=== PATIENT | male | born 1990 | race African-American/Black ===

== ENCOUNTER 2018-04-01 15:35 | Emergency (ER) | payer SELFPAY ==
[2018-04-01 15:36] VITALS: BP 134/67; PULSE 62; RESP 16; TEMP 36.4; O2SAT 97; BMI 26.6
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
[2018-04-01] MEDS: Naproxen 250 MG Tablet 500 MG PO (16:09)
== END 2018-04-01 16:16 | disposition home or self-care (01) ==
LOC: ED 16:02
PROVIDERS: Emergency Provider Emergency Medicine
DX: M94.0 Chondrocostal junction syndrome [Tietze] (principal)
CPT/HCPCS: 99283

== ENCOUNTER 2019-01-13 11:39 | Emergency (ER) | payer SELFPAY ==
[2019-01-13 11:40] VITALS: BP 142/77; PULSE 81; RESP 16; TEMP 36.3; O2SAT 95; BMI 25.0
--- NOTE | 2019-01-13 11:56 | RAD_ITS ---
STUDY: X-RAY - RIGHT FOOT CLINICAL: Male, 29 years old. Pain and swelling. TECHNIQUE: 3 view(s) of the foot. COMPARISON: None. FINDINGS: Normal talus, calcaneus, and tarsal bones. Normal visualized subtalar, talonavicular, calcaneocuboid, tarsal and tarsometatarsal articulations. Normal metatarsi. Normal metatarsophalangeal joint of the great toe. Normal tibial and fibular sesamoid bones. Normal interphalangeal joint of the great toe. Normal phalanges of the great toe. Normal second through fifth metatarsophalangeal joints. Normal interphalangeal joints and phalanges of the lesser toes. The soft tissue structures are unremarkable. RAD/Foot min 3 Views IMPRESSION: Normal x-ray examination of the foot. Electronically Signed: Willian Moeller MD at 12:18 EST , Service support ,
[2019-01-13] MEDS: Ibuprofen 600 MG Tablet PO (12:00)
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
--- NOTE | 2019-01-13 12:51 | ED.DEP ---
ED Disposition - Plan for ED Patient: Instructions: R.I.C.E. Prescriptions: Ibuprofen [Motrin] 800 mg PO TID PRN PRN #20 tab PRN Reason: Pain Referrals: Paramjit Black MD [Primary Care Provider] -
== END 2019-01-13 13:26 | disposition home or self-care (01) ==
PROVIDERS: Emergency Provider Emergency Medicine; Family Provider Family Medicine; PCP Family Medicine
DX: M79.671 Pain in right foot (principal)
CPT/HCPCS: 73630; 99283; J7030; A4216

== ENCOUNTER 2022-07-27 08:35 | Emergency (ER) | payer BC, SELFPAY ==
[2022-07-27 08:36] VITALS: BP 131/84; PULSE 76; RESP 14; TEMP 36.8; BMI 27.0
[2022-07-27] MEDS: Lidocaine 1% (20 ml mdv) 20 ML Vial 10 ML INFILT (08:49)
--- NOTE | 2022-07-27 08:50 | EDS_ITS ---
HPI History of Present Illness HPI Narrative: Left lateral thumb laceration last night around midnight. Chief Complaint: Laceration Informant: patient Occured/Mechanism Mechanism/Context: Yes injury Onset/Context/Timing Onset: Today Context: Sudden Onset Timing: Continuous Quality of Pain: Sharp Current Severity: Mild Maximum Severity: Mild Associated Symptoms Associated Symptoms: Negative for Parasthesia, Weakness or Loss of Funtion Narrative Narrative: 32-year-old male [id number]. Last night was cooking around midnight when he accidentally cut his left lateral left thumb. This occurred almost 9 hours ago now. He was not available to come in last night so he came in this morning. He believes his last tetanus shot was 3 years ago almost 7 years ago. Denies any other injuries. Tetanus Immunization: <5 years Prior similar symptoms: No Recent Illness/Hospitalization: No PFSH PFSH Medical History no medical history no medical history Home Medications cetirizine 10 mg capsule (Zyrtec) 10 mg PO DAILY 04/07/17 [History Last Taken 04/07/17] naproxen 500 mg tablet 500 mg PO BID #14 tabs 04/01/18 [Rx Last Taken Unknown] ibuprofen 800 mg tablet 800 mg PO TID PRN PRN Pain #20 tabs 01/13/19 [Rx Last Taken Unknown] Allergy/AdvReac Type Severity Reaction Status Date / Time No Known Allergies Allergy Verified 07/27/22 08:36 Social History Smoking Status: Never smoker ROS ROS ED ROS Narrative Denies recent illness. Review of Systems ROS Unobtainable: Denies due to encephalopathy Constitutional Constitutional ED: Denies chills or fever(s) Eyes Eyes: Denies blurry vision ENT ENT ED: Denies ear pain Cardiovascular Cardiovascular: Denies chest pain Respiratory/Chest Respiratory/Chest: Denies cough or dyspnea Gastrointestinal Gastrointestinal: Denies abdominal pain Genitourinary Genitourinary ED: Denies dysuria or hematuria Musculoskeletal Musculoskeletal: Denies back pain Integumentary Denies abscess Neurologic Neurologic: Denies headache(s) Psychiatric Psychiatric: Denies anxiety Endocrine Endocrinology: Denies cold intolerance Hematologic/Lymphatic Hematologic/Lymphatic: Denies easy bleeding Allergic/Immunologic Allergic/Immunologic ED: Denies mouth swelling or tongue swelling EXAM Physical Exam Narrative Exam Narrative: 32-year-old male no acute distress. Vital signs stable afebrile. H EENT exam normal. Lungs are clear. Heart regular rhythm. Abdomen soft nontender. Moving all 4 extremities. Neurovascularly intact. His left thumb lateral radial side has a flap laceration. Oozing blood. He has flexion extension. It does not appear to be involvement of the bone or joint. Normal touch sensation to tip of his thumb. No infection. Const Vital Signs: 07/27/22 08:36 Temperature 98.2 F Temperature Source Temporal Pulse Rate 76 Respiratory Rate 14 Blood Pressure 131/84 H Blood Pressure Mean 99 Positive well developed; Negative for obese, cachectic, contractures or unkempt General Appearance ED: well developed and NAD; Negative for unkempt, cachectic, contractures, cyanotic or diaphoretic Nutritional Appearance: Negative for cachectic or obese HEENT Reports moist mucous membranes normocephalic and atraumatic; Negative for trauma or tenderness Eyes PERRL and EOMs intact bilaterally General Eye ED: Negative for other Neck full ROM and supple General: Negative for tenderness Lymph Lymphatic: Negative for other Chest Wall inspection of chest normal and palpation of chest normal Resp normal respiratory effort and clear to auscultation bilaterally Effort and Inspection: Negative for pain with movement Auscultation: Negative for rales, rhonchi or wheezes Cardio regular rate, regular rhythm, S1 normal heart sound, S2 normal heart sound and no murmurs Rate: Negative for bradycardia or tachycardic Rhythm: Negative for abnormal rhythm GI non-tender, non-distended and no masses Inspection: Negative for abdominal distention Auscultation: normoactive bowel sounds Palpation: soft; Negative for tender or guarding Bladder / Kidney Exam: No other Back/Spine no CVA tenderness General Back: Negative for CVA tenderness Cervical Spine: Negative for cervical spine tenderness Thoracic Spine / Upper Back: Negative for thoracic spinal tenderness Extremity normal to inspection and full ROM Extremity Narrative: Except left thumb lateral radial side flap laceration. No infection. Needs r epaired. Neuro oriented x3, CN's II-XII intact bilaterally, moves all extremities, no focal motor deficits and No no sensory deficits noted Sensorium / Orientation: alert, oriented to person, oriented to place and oriented to time; Negative for orientation impaired, lethargic or stuporous Motor Exam: strength 5/5 throughout Psych mental status grossly normal Appearance: Negative for unkempt Attitude: No agitated Mood & Affect: Negative for depressed, anxious or tearful Skin General Skin Exam: Negative for petechiae Lesions: no lesions Rashes: no rashes Trauma: laceration; Negative for no lacerations or abrasions MDM MDM MDM Narrative Medical decision making narrative: Left lateral thumb laceration and need suture repaired. They washed off. Cleaned with Shur-Clens washed with saline. Explored. Local anesthetized with lidocaine and closed. He will be instructed on wound care and suture removal. Procedures Lacerations Left thumb laceration repair:: Length: 2.36 in Depth: Sub Q Shape: Flap Prep: Sterile Conditions and Shure-Clens Laceration repair: Irrigated, Lidocaine, Local and Skin sutures Number of Sutures/[place]: 8 Suture Information: Ethilon, Simple and 5-0 Comment: Left lateral thumb laceration radial side. V-shaped flap. Local anesthetized with lidocaine. Cleaned with Shur-Clens. Irrigated with saline. Washed explored. Closed using 8 simple interrupted 5-0 Ethilon sutures. Proper hemostasis wound closure is obtained. Patient was instructed on wound care and suture removal in 10 days. Return if any signs of infection. Discharge Plan Triage Chief Complaint: Laceration ED Provider: Ja Gray Dx/Rx/DC Orders Clinical Impression: Laceration of left thumb Instructions: ED Laceration, Hand: All Closures Prescriptions: No Action cetirizine [Zyrtec] 10 MG capsule 10 mg PO DAILY naproxen 500 MG tablet 500 mg PO BID Qty: 14 0RF ibuprofen 800 MG tablet 800 mg PO TID PRN PRN (Reason: Pain) Qty: 20 0RF Primary Care Provider: Chriss Estevez Referrals: Paramjit Black MD [Med Staff - [employer]] - 10 Day for suture removal Activity Restrictions/Additional Instructions: Keep last repair dry and clean. Gently wash it daily with soap and water. Dry thoroughly. Apply antibiotic ointment once to twice daily. Suture removal in 10 days from now. You can remove them yourself if you feel comfortable. Cut away from the knot side and pull out the knot side. Watch for any signs of infection such as pus, redness, fever or streaks if seen return. Disposition Disposition: Home, Self Care
== END 2022-07-27 09:44 | disposition home or self-care (01) ==
PROVIDERS: Emergency Provider Emergency Medicine; PCP Family Medicine; Visit Provider Emergency Medicine
DX: S61.012A Laceration without foreign body of left thumb without damage to nail, initial encounter (principal); W26.8XXA Contact with other sharp object(s), not elsewhere classified, initial encounter; Y93.G3 Activity, cooking and baking
CPT/HCPCS: 12002; 99282

== ENCOUNTER 2023-07-09 08:57 | Emergency (ER) | payer MEDICAID, SELFPAY ==
[2023-07-09] VITALS (7 sets, daily range): BP systolic 116–132; BP diastolic 72–94; PULSE 70–80; RESP 16–20; TEMP 36.6–37.2; O2SAT 94–100; BMI 28.1
[2023-07-09 09:59] LABS: Absolute Lymphocyte Count 1.54 X10^3/uL (0.83-4.51); Absolute Neutrophil Count 4.9 X10^3/uL (2.0-7.7); Basophil# 0.05 X10^3/uL; Basophil% 0.7 % (0-1); Eosinophil# 0.05 X10^3/uL; Eosinophils% 0.7 % (0-5); Hematocrit 47.5 % (40-54); Hemoglobin 15.1 g/dL (13.0-16.5); Lymphocyte # 1.54 X10^3/ul (0.83-4.51); Lymphocyte % 20.4 % (19-41); Mean Corp Hgb Conc 31.8 g/dL (32-36); Mean Corpuscular Hgb 29.3 pg (27.0-32.0); Mean Corpuscular Volume 92.2 fL (80-94); Mean Platelet Vol. 9.2 fl (6.2-12.0); Monocyte# 0.99 X10^3/uL; Monocyte% 13.1 % (0-10); NRBC Flagged by Analyzer 0 % (0-5); Neutrophil % 64.8 % (47-70); Platelet Count 253 K/mm3 (150-450); RBC Distribution Width CV 13.1 % (11.6-14.6); RBC Distribution Width SD 44.6 fl (35.1-43.9); Red Blood Count 5.15 M/mm3 (4.6-6.2); White Blood Count 7.6 K/mm3 (4.4-11.0)
--- NOTE | 2023-07-09 10:12 | ED.RN ---
Per Dr. Grey-pt does need a sitter
[2023-07-09 10:15] LABS: ALB/GLOB Ratio 1.2 RATIO (0.9-2.4); AST(SGOT) 15 U/L (15-37); Alanine Aminotransfer ALT/SGPT 27 U/L (16-61); Albumin, Serum 3.9 g/dL (3.2-5.0); Alkaline Phosphatase 55 U/L (45-117); Anion Gap 3 (5-15); BUN 16 mg/dL (7-18); BUN/Creat Ratio 12.2 RATIO (10-20); Calcium,Total 9.2 mg/dL (8.5-10.1); Chloride 109 mmol/L (98-107); Creatinine, Serum 1.31 mg/dL (0.70-1.30); EST Glomerular Filtration Rate 68 mL/min (>60); Est Glom Filt Rate - Afr Amer 82 mL/min (>60); Estimated Creatinine Clearance 76.39 ml/min; Globulin 3.3 g/dL (2.2-4.2); Glucose 88 mg/dL (74-106); Potassium 3.7 mmol/L (3.5-5.1); Protein, Total 7.2 g/dL (6.4-8.2); Sodium Level 141 mmol/L (136-145)
[2023-07-09 10:17] LABS: Amphetamine Urine VISTA NEGATIVE (<1000 ng/mL); Barbiturate Urine VISTA NEGATIVE (< 200 ng/mL); Benzodiazepine Urine VISTA NEGATIVE (< 200 ng/mL); Cocaine Urine VISTA NEGATIVE (< 300 ng/mL); Ecstacy Urine VISTA NEGATIVE (< 500 ng/mL); Methadone Urine VISTA NEGATIVE (< 300 ng/mL); PCP Urine VISTA NEGATIVE (< 25 ng/mL); THC Urine VISTA NEGATIVE (< 50 ng/mL); Vista UDS pH Range 5
[2023-07-09 10:38] LABS: Alcohol, Blood (Medical)-Serum < 3.0 mg/dL
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
--- NOTE | 2023-07-09 15:25 | EKG12_ITS ---
Test Reason : MENTAL HEALTH Blood Pressure : / mmHG Vent. Rate : 068 BPM Atrial Rate : 068 BPM P-R Int : 152 ms QRS Dur : 082 ms QT Int : 374 ms P-R-T Axes : 041 037 012 degrees QTc Int : 397 ms Normal sinus rhythm with sinus arrhythmia Septal infarct , age undetermined Abnormal ECG Confirmed by CHARU REID, MIAN ([id number]), editorial manager JORGE YA ([id number]) on 07/13/2023 8:21:49 AM Referred By: Confirmed By:KRYSTAL BOX MD
--- NOTE | 2023-07-09 16:54 | NURSING ---
PATIENT WAS ACCEPTED TO [facility]- [facility] TO [facility]SP[facility]- ETA GIVEN 2HRS ([id number])
--- NOTE | 2023-07-09 17:02 | CM.ED ---
Social Work Patient accepted to [facility] by Dr. Sears. Accepting info given to nail making machine tender to schedule transport. [facility] requesting pink slip made out to them and original sent with patient. SW notified patient and left voicemail for patient's uncle, Garcia, who had requested to be notified. SW provided support to patient and answered questions. Renay Mitchell SCHEDULING ASSISTANT, MOTOR EXPRESS CLERK
--- NOTE | 2023-07-09 17:16 | ED.RN ---
[facility]
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
--- NOTE | 2023-07-09 20:43 | ED.RN ---
VICKI MENDOZA STATED CRISIS WILL COME TO ASSESS. [facility] DECLINED DUE TO NO INSURANCE. NOW WAITING FOR NEW PLACEMENT. [facility] WAS CANCELED WITH [facility] 2039.
--- NOTE | 2023-07-09 21:31 | ED.RN ---
[facility] TO REFER TO [facility]
--- NOTE | 2023-07-09 22:12 | CM.ED ---
Social Work REJI informed that patient's insurance was not active. [facility] called due to insurance showing ineligible. Registration ran 2 insurances which were both inactive. Due to patient having no insurance, patient will likely need assessed by crisis. SW called crisis to discuss lack of insurance. [facility] has funding for placement but must be assessed by crisis. REJI introduced field crop ii farmworker, Gabby, to patient and explained the process due to no insurance. Gabby from [facility] assessed patient and is referring patient. SW requested patient still go to [facility] due to being accepted already but [facility] does not do single case agreement funding with [facility]. Crisis utilizes [facility] and [facility]. Pt will be referred to [facility] with crisis funding. Plan: Crisis to handle placement and provide funding due to no insurance. Renay Mitchell SUPERANNUATION CLERK, WINE BLENDER
[2023-07-10 01:22] VITALS: BP 119/68; PULSE 68; RESP 16; TEMP 37.1; O2SAT 100
== END 2023-07-10 02:52 ==
PROVIDERS: Emergency Provider Emergency Medicine; PCP Family Medicine; Visit Provider Emergency Medicine
DX: R45.851 Suicidal ideations (principal); F32.A Depression, unspecified
CPT/HCPCS: 36415; 80053; 80307; 82077; 85025; 87811; 93005; 99285

== ENCOUNTER 2023-12-06 06:05 | Emergency (ER) | payer MEDICAID, SELFPAY ==
--- NOTE | 2023-12-06 06:08 | CT_ITS ---
INDICATION: trauma EXAMINATION: CT Maxillofacial W/O Contrast Injection TECHNIQUE: Helically acquired images were obtained of the face with sagittal and coronal reconstructed images. Individualized dose optimization techniques were used for this CT. IV Contrast dosage and agent: None. COMPARISON: None. FINDINGS: SOFT TISSUES: Left facial/periorbital soft tissue swelling. VISUALIZED PARANASAL SINUSES: Mucosal thickening of the left maxillary sinus. VISUALIZED MASTOID AIR CELLS: Clear. FACIAL BONES, MANDIBLE AND TMJs: No fracture. ORBITAL CONTENTS: The globes, extraocular muscles and retrobulbar fat are unremarkable. CT/Sinus/Facial Bone IMPRESSION: 1. No facial bone fracture. 2. Left maxillary sinus disease. Electronically Signed: Chriss James DO at 6:52 EST ,
--- NOTE | 2023-12-06 06:08 | EKG12_ITS ---
Test Reason : TRAUMA Blood Pressure : / mmHG Vent. Rate : 102 BPM Atrial Rate : 102 BPM P-R Int : 150 ms QRS Dur : 082 ms QT Int : 358 ms P-R-T Axes : 043 062 043 degrees QTc Int : 466 ms Sinus tachycardia Septal infarct , age undetermined Abnormal ECG Confirmed by JAKE REID, KERRY ([id number]), editor magazine BASSAM SCHULZ ([id number]) on 12/08/2023 9:34:14 AM Referred By: Confirmed By:KERRY JOSEPH MD
[2023-12-06 06:09] VITALS: PULSE 98; RESP 16; TEMP 36.1; O2SAT 99; BMI 27.3
--- NOTE | 2023-12-06 06:09 | CT_ITS ---
INDICATION: Trauma EXAMINATION: CT BRAIN - CT Head or Brain W/O Contrast Injection TECHNIQUE: Multiple axial images were obtained of the head with sagittal and coronal reconstructed images. Individualized dose optimization techniques were used for this CT. IV contrast dosage and agent: None. COMPARISON: None. FINDINGS: BRAIN PARENCHYMA: No evidence of an acute infarct or intracranial hemorrhage. No evidence of a mass. CSF SPACES: The ventricles, sulci and subarachnoid cisterns are appropriate for age. CALVARIUM, SKULL BASE, PARANASAL SINUSES AND MASTOID AIR CELLS: No fracture. Mastoid air cells are clear. Visualized paranasal sinuses are unremarkable. Left facial/periorbital soft tissue swelling. ORBITS: The globes, extraocular muscles, optic nerves and retrobulbar fat are unremarkable. CT/Brain/Head without Contrast IMPRESSION: No fracture or intracranial abnormality. Electronically Signed: Chriss James DO at 6:56 EST ,
--- NOTE | 2023-12-06 06:09 | CT_ITS ---
INDICATION: Trauma EXAMINATION: CT CERVICAL SPINE - CT Spine Cervical W/O Contrast Injection TECHNIQUE: Helically acquired images were obtained of the cervical spine with sagittal and coronal reconstructed images. Individualized dose optimization techniques were used for this CT. IV contrast dosage and agent: None. COMPARISON: None. FINDINGS: VERTEBRAE: No fracture or subluxation. The craniocervical junction is unremarkable. Moderate degenerative changes with prominent bridging anterior osteophytes. NECK SOFT TISSUES: The prevertebral soft tissues are unremarkable. No pathologically enlarged lymph nodes. LUNG APICES: Clear. CT/Spine Cervical without Contras IMPRESSION: No fracture or subluxation. Electronically Signed: Chriss James DO at 7:00 EST ,
--- NOTE | 2023-12-06 06:09 | CT_ITS ---
INDICATION: trauma -- TRAUMA ONLY: IV Contrast. Dont wait for creatinine EXAMINATION: CT Chest Abdomen And Pelvis W/ Contrast Injection TECHNIQUE: Helically acquired axial images were obtained of the chest, abdomen, and pelvis with sagittal and coronal reconstructed images. Three-D reconstructed images were reviewed. Individualized dose optimization techniques were used for this CT. IV contrast dosage and agent: 100 mL of Isovue-370. Oral contrast: None. COMPARISON: None. FINDINGS: ---Chest: LUNGS, PLEURA AND LARGE AIRWAYS: No consolidation or edema. No pulmonary nodule. No pleural effusion. No pneumothorax. THYROID: Unremarkable. HEART AND PERICARDIUM: No evidence of coronary artery calcification. No pericardial effusion. MEDIASTINUM AND WILLIAMS: No mediastinal or hilar adenopathy. Esophagus is unremarkable. No hiatal hernia. VESSELS: No thoracic aortic aneurysm or dissection. No obvious central pulmonary embolism although this study was not performed with pulmonary embolism protocol. BONES: No acute abnormality. ---Abdomen/Pelvis: VESSELS: No abdominal aortic aneurysm or dissection. LIVER: No evidence of a mass. No intrahepatic or extrahepatic biliary duct dilation. GALLBLADDER: No calcified stones. No evidence of cholecystitis. PANCREAS: No focal solid or cystic mass. No evidence of pancreatitis. SPLEEN: Normal. ADRENAL GLANDS: Normal. KIDNEYS AND URETERS: No urinary tract stone. No hydronephrosis or hydroureter. No significant asymmetric perinephric stranding. URINARY BLADDER: Unremarkable. BOWEL: No evidence of diverticulosis or diverticulitis. Appendix appears normal. No evidence of bowel obstruction. REPRODUCTIVE ORGANS: No evidence of a pelvic mass. PERITONEUM: No intraabdominal free fluid or free air. LYMPH NODES: No pathologically enlarged mesenteric or retroperitoneal lymph nodes. ABDOMINAL WALL: No abdominal or pelvic wall hernia. BONES: No acute abnormality. CT/CT Chest, Abd, Pel w/Contrast IMPRESSION: No evidence of acute traumatic injury of the chest, abdomen or pelvis. Electronically Signed: Chriss James DO at 7:12 EST ,
[2023-12-06 06:13] VITALS: BP 147/68
[2023-12-06 06:21] LABS: Absolute Lymphocyte Count 2.05 X10^3/uL (0.83-4.51); Absolute Neutrophil Count 4.8 X10^3/uL (2.0-7.7); Basophil# 0.05 X10^3/uL; Basophil% 0.6 % (0-1); Eosinophil# 0.06 X10^3/uL; Eosinophils% 0.8 % (0-5); Hematocrit 43.8 % (40-54); Hemoglobin 14.1 g/dL (13.0-16.5); Lymphocyte # 2.05 X10^3/ul (0.83-4.51); Lymphocyte % 26.5 % (19-41); Mean Corp Hgb Conc 32.2 g/dL (32-36); Mean Corpuscular Hgb 28.7 pg (27.0-32.0); Mean Corpuscular Volume 89.2 fL (80-94); Mean Platelet Vol. 8.8 fl (6.2-12.0); Monocyte# 0.73 X10^3/uL; Monocyte% 9.4 % (0-10); NRBC Flagged by Analyzer 0 % (0-5); Neutrophil # 4.81 X10^3/uL (2.7-7.7); Neutrophil % 62.3 % (47-70); Platelet Count 242 K/mm3 (150-450); RBC Distribution Width CV 13.9 % (11.6-14.6); Red Blood Count 4.91 M/mm3 (4.6-6.2); White Blood Count 7.7 K/mm3 (4.4-11.0)
[2023-12-06 06:27] VITALS: BMI 24.4
[2023-12-06] MEDS: 0.9% Normal Saline (1000mL) 1,000 ML 999 ML IV (06:28)
[2023-12-06 06:29] VITALS: BP 137/87
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
[2023-12-06 06:36] LABS: Bacteria 0 SEEN /hpf (None Seen); Mucous, Urine 0 SEEN /hpf (<or=2+); Red Blood Cells-Urine 0 SEEN /hpf (0-5); Squamous Epithelial Cells - UA 0 SEEN /hpf (0-5); White Blood Cells 0 SEEN /hpf (0-5)
[2023-12-06 06:39] LABS: AST(SGOT) 31 U/L (15-37); Alanine Aminotransfer ALT/SGPT 26 U/L (16-61); Albumin, Serum 3.9 g/dL (3.2-5.0); Alkaline Phosphatase 54 U/L (45-117); Anion Gap 8 (5-15); BUN 10 mg/dL (7-18); BUN/Creat Ratio 8.5 RATIO (10-20); Bilirubin, Direct 0.11 mg/dL (0.00-0.30); Calcium,Total 8.3 mg/dL (8.5-10.1); Chloride 103 mmol/L (98-107); Creatinine, Serum 1.17 mg/dL (0.70-1.30); EST Glomerular Filtration Rate 77 mL/min (>60); Est Glom Filt Rate - Afr Amer 93 mL/min (>60); Estimated Creatinine Clearance 85.53 ml/min; Globulin 3.6 g/dL (2.2-4.2); Glucose 90 mg/dL (74-106); Potassium 3.7 mmol/L (3.5-5.1); Protein, Total 7.5 g/dL (6.4-8.2); Sodium Level 138 mmol/L (136-145)
[2023-12-06 06:47] LABS: Amphetamine Urine VISTA NEGATIVE (<1000 ng/mL); Barbiturate Urine VISTA NEGATIVE (< 200 ng/mL); Benzodiazepine Urine VISTA NEGATIVE (< 200 ng/mL); Cocaine Urine VISTA NEGATIVE (< 300 ng/mL); Ecstacy Urine VISTA NEGATIVE (< 500 ng/mL); Methadone Urine VISTA NEGATIVE (< 300 ng/mL); PCP Urine VISTA NEGATIVE (< 25 ng/mL); THC Urine VISTA NEGATIVE (< 50 ng/mL); Vista UDS pH Range 5
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
[2023-12-06 06:50] LABS: Prothrombin Time (Protime)PT. 13.3 SECONDS (11.7-14.9)
[2023-12-06 06:51] LABS: Partial Thromboplast Time 27.6 Seconds (24.1-36.2)
--- NOTE | 2023-12-06 06:51 | NURSING ---
CALLED [facility] FOR TRANSFER
[2023-12-06 07:03] LABS: Color, Urine Yellow (Yellow); Glucose, Dipstick Normal (Normal); Ketone-Dipstick Negative (Negative); Leukocyte Esterase-Dipstick Negative /ul (Negative); Nitrite-Dipstick Negative (Negative); Occult Blood-Urine Negative /ul (Negative); Protein-Dipstick Negative (Negative); Urine Bilirubin Dipstick Negative (Negative); Urine Clarity Clear (Clear); Urine Urobilinogen Normal (Normal); Urine pH 6.5 (5.0 - 8.0)
--- NOTE | 2023-12-06 07:03 | NURSING ---
CALLED [facility], ETA IS 90 MIN
[2023-12-06 07:35] VITALS: BP 123/82; PULSE 83; RESP 16; O2SAT 97
[2023-12-06 08:00] VITALS: BP 122/72; PULSE 93
== END 2023-12-06 08:56 | disposition short-term general hospital (02) ==
PROVIDERS: Emergency Provider Emergency Medicine; PCP Family Medicine; Visit Provider Emergency Medicine
DX: S00.03XA Contusion of scalp, initial encounter (principal); S00.83XA Contusion of other part of head, initial encounter; S00.01XA Abrasion of scalp, initial encounter; S00.81XA Abrasion of other part of head, initial encounter; S80.211A Abrasion, right knee, initial encounter; S80.212A Abrasion, left knee, initial encounter; V87.8XXA Person injured in other specified noncollision transport accidents involving motor vehicle (traffic), initial encounter; Y93.89 Activity, other specified; Y99.8 Other external cause status
CPT/HCPCS: 70450; 70486; 71260; 72125; 74177; 80048; 80076; 80307; 80320; 81001; 85025; 85610; 85730; 93005; 96360; 99284; J7030; Q9967; A4216; G0480